=== PATIENT | female | born 1995 | race Caucasian/White ===

== ENCOUNTER 2017-07-06 13:30 | Outpatient (CLI) | payer OTHER ==
--- NOTE | 2017-07-06 17:00 | RAD ---
TWO VIEWS OF THE CHEST 07/06/2017 COMPARISON: None. HISTORY: Shortness of breath. FINDINGS: Pectus excavatum deformity noted. No pneumothorax or pleural fluid. No lobar consolidation or alve olar edema. Heart and mediastinal contours are grossly unremarkable. There is no acute osseous abn ormality seen. There may be a very subtle degree of dextroscoliosis of the thoracolumbar junction. IMPRESSION: No acute findings. Pectus excavatum deformity noted. POS: [facility]
== END 2017-07-06 13:31 | disposition home or self-care (01) ==
LOC: RAD 13:30
PROVIDERS: ATTEND Internal Medicine Pulmonary Disease
DX: R06.00 Dyspnea, unspecified (principal)
CPT/HCPCS: 71020